=== PATIENT | male | born 1995 | race African-American/Black ===

== ENCOUNTER 2017-07-05 10:41 | Emergency (ER) | payer OTHER ==
[2017-07-05] MEDS: NS 1,000 ML IV (11:43)
[2017-07-05] MEDS: ONDANSETRON 4MG/2ML VIAL (J2405) IV (11:43)
[2017-07-05] MEDS: MORPHINE 4 MG/ML 1ML VIAL (J2270) IV (11:43)
[2017-07-05] MEDS: PROPOFOL 200 MG/20 ML VIAL IV ×2 (12:04→12:05)
== END 2017-07-05 13:42 | disposition home or self-care (01) ==
LOC: M ED 10:41
DX: S03.01XA Dislocation of jaw, right side, initial encounter (principal); X58.XXXA Exposure to other specified factors, initial encounter; Y92.89 Other specified places as the place of occurrence of the external cause
CPT/HCPCS: J2270

== ENCOUNTER 2017-07-06 05:35 | Emergency (ER) | payer OTHER ==
[2017-07-06] MEDS: ONDANSETRON 4MG/2ML VIAL (J2405) IV (07:21)
[2017-07-06] MEDS: NS 1,000 ML IV (07:21)
[2017-07-06 07:39] LABS: BASO # 0.1 10^3/uL (0.0-0.2); BASO % 0.9 % (0.0-1.0); EOS # 0.1 10^3/uL (0.0-0.50); EOS % 1.7 % (0.0-3.0); HEMATOCRIT 46.4 % (42.0-52.0); HEMOGLOBIN 15.8 g/dl (14.0-18.0); IMMATURE GRANULOCYTE % 0.4 % (0-3.0); LYMPH # 1.7 10^3/uL (1.5-6.5); MEAN CORPUSCULAR HEMOGLOBIN 31.2 pg (27.0-33.0); MEAN CORPUSCULAR HGB CONC 34.1 g/dl (32.0-36.5); MEAN CORPUSCULAR VOLUME 91.7 fl (80.0-96.0); MONO # 0.6 10^3/uL (0.0-0.8); MONO % 11.2 % (0.0-5.0); NEUTROPHILS # 2.9 10^3/uL (1.8-7.7); NEUTROPHILS % 53.8 % (36.0-66.0); PLATELET COUNT, AUTOMATED 180 10^3/uL (150-450); RED BLOOD COUNT 5.06 10^6/uL (4.30-6.10); RED CELL DISTRIBUTION WIDTH 11.9 % (11.5-14.5); WHITE BLOOD COUNT 5.4 10^3/uL (4.0-10.0)
[2017-07-06 07:58] LABS: ALBUMIN 3.8 GM/DL (3.2-5.2); ALBUMIN/GLOBULIN RATIO 1.23 (1.00-1.93); ALKALINE PHOSPHATASE 69 U/L (45-117); ALT/SGPT 13 U/L (12-78); ANION GAP 3 MEQ/L (8-16); AST/SGOT 17 U/L (7-37); BILIRUBIN,DIRECT 0.1 MG/DL (0.0-0.2); BILIRUBIN,TOTAL 0.4 MG/DL (0.2-1.0); BLOOD UREA NITROGEN 9 MG/DL (7-18); CALCIUM LEVEL 8.5 MG/DL (8.5-10.1); CARBON DIOXIDE LEVEL 32 MEQ/L (21-32); CHLORIDE LEVEL 103 MEQ/L (98-107); CREATININE FOR GFR 0.91 MG/DL (0.70-1.30); GLOMERULAR FILTRATION RATE > 60.0 (>60); GLUCOSE, FASTING 93 MG/DL (70-100); LIPASE 109 U/L (73-393); POTASSIUM SERUM 4.1 MEQ/L (3.5-5.1); SODIUM LEVEL 138 MEQ/L (136-145); TOTAL PROTEIN 6.9 GM/DL (6.4-8.2)
[2017-07-06] MEDS: LOPERAMIDE 2 MG CAP PO (08:56)
== END 2017-07-06 09:34 | disposition home or self-care (01) ==
LOC: M ED 05:35
DX: A08.4 Viral intestinal infection, unspecified (principal); Z82.49 Family history of ischemic heart disease and other diseases of the circulatory system; Z82.3 Family history of stroke
CPT/HCPCS: J2405

== ENCOUNTER 2018-08-20 19:12 | Emergency (ER) | payer OTHER ==
[~2018-08-20] VITALS: Ht 185.4 cm; Wt 93.2 kg
[2018-08-20 19:12] VITALS: BP 138/74
[~2018-08-20 19:12] MED LIST: IMOD2CAP PO
== END 2018-08-20 20:09 | disposition home or self-care (01) ==
LOC: M ED 19:12
DX: S03.01XA Dislocation of jaw, right side, initial encounter (principal); X58.XXXA Exposure to other specified factors, initial encounter; Y92.9 Unspecified place or not applicable; M26.69 Other specified disorders of temporomandibular joint

== ENCOUNTER 2018-11-08 03:23 | Emergency (ER) | payer OTHER ==
[~2018-11-08] VITALS: Ht 185.4 cm; Wt 89.9 kg
[2018-11-08] MEDS ORDERED: KETOROLAC 60 MG/2 ML VIAL (J1885) IM ONE (04:45)
[2018-11-08 05:13] VITALS: BP 126/68
--- NOTE | 2018-11-08 07:54 | REP ---
Right foot four views : There is no fracture or dislocation. Mineralization and joint spaces are normal. There are no calcifications or foreign bodies. Impression: Negative right foot . Electronically Signed by Fabio Otero MD 11/08/2018 07:26 A
== END 2018-11-08 05:14 | disposition home or self-care (01) ==
LOC: M ED 03:23
DX: M77.9 Enthesopathy, unspecified (principal)
CPT/HCPCS: 73630; 96372; 99284; J1885

== ENCOUNTER 2018-12-06 19:36 | Emergency (ER) | payer OTHER ==
[~2018-12-06] VITALS: Ht 182.9 cm; Wt 87.7 kg
[2018-12-06] MEDS ORDERED: BUPIVACAINE HCL 0.25% 10 ML VIAL SC ONE (20:45)
[2018-12-06] MEDS ORDERED: PROPOFOL 200 MG/20 ML VIAL IV PRN (21:00)
[2018-12-06] MEDS ORDERED: NS 1,000 ML IV ONE (21:00)
[2018-12-06 22:16] VITALS: BP 127/82
== END 2018-12-06 22:18 | disposition home or self-care (01) ==
LOC: M ED 19:36
DX: S03.01XA Dislocation of jaw, right side, initial encounter (principal); X58.XXXA Exposure to other specified factors, initial encounter; Y92.9 Unspecified place or not applicable; Y93.9 Activity, unspecified; Y99.9 Unspecified external cause status